=== PATIENT | male | born 1975 | race Caucasian/White ===

== ENCOUNTER 2020-12-16 07:45 | Emergency (ER) | payer SELFPAY ==
[~2020-12-16] VITALS: Ht 170.2 cm; Wt 68.5 kg
[2020-12-16 08:02] VITALS: BP 125/71
--- NOTE | 2020-12-16 08:12 | NUR ---
AT BEDSIDE FOR EVAL.
[2020-12-16] MEDS ORDERED: LIDOCAINE 1% INJ 50 ML MDV IJ ONE (08:20)
[2020-12-16] MEDS ORDERED: CEFTRIAXONE 1 G VIAL ONE (08:20)
[2020-12-16] MEDS ORDERED: SULFAMETH/TRIMETH 800/160 MG 1 UDTAB TABLET ONE (08:21)
[2020-12-16] MEDS ORDERED: TDAP [DIPH/PERTUSSIS/TET] 0.5 ML VIAL IM ONE ×2 (08:22→08:30)
[2020-12-16] MEDS ORDERED: SULFAMETH/TRIMETH 800/160 MG 1 UDTAB TABLET PO ONE (08:30)
[2020-12-16] MEDS ORDERED: CEFTRIAXONE 1 G VIAL IM ONE (08:30)
[2020-12-16] MEDS ORDERED: SULF1TAB48 PO (09:05)
[2020-12-16] MEDS ORDERED: CEPH500C2 PO (09:05)
--- NOTE | 2020-12-16 09:12 | NUR ---
Patient discharged to home in stable condition. Written and verbal after care instructions given. Patient verbalizes understanding of instruction.
== END 2020-12-16 09:12 | disposition home or self-care (01) ==
LOC: ER 07:55
DX: L03.114 Cellulitis of left upper limb (principal)
CPT/HCPCS: 73130; 90471; 90715; 96372; 99284; J0696; J3490